=== PATIENT | male | born 1955 | race Caucasian/White ===

== ENCOUNTER 2020-09-25 07:19 | Inpatient (IN) ==
[~2020-09-25 07:19] MED LIST: Buffered Lidocaine 1% SYRIN 1 ml INTRADERM ONE; Dexamethasone IV 4 MG/ML VIAL 1 ml VIAL IV SLOW PU ONE; Dexmedetomidine 200 mcg/2 ml 2 ml VIAL (200 mcg) ONE; Famotidine IV 10 MG/ML 2 ml VIAL (20 mg) IV ONE; Lactated Ringers 1000 ml BAG 1,000 ML IV SCH
[2020-09-25] MEDS ORDERED: Dexamethasone IV 4 MG/ML VIAL 1 ml VIAL ONE (07:48)
[2020-09-25] MEDS ORDERED: Famotidine IV 10 MG/ML 2 ml VIAL (20 mg) ONE (07:49)
[2020-09-25] MEDS ORDERED: ceFAZolin 2 GM PREMIX 2 GM/50 ML BAG ONE (07:49)
[2020-09-25] MEDS ORDERED: ceFAZolin 1 GM ADVAN 1 GM ADDV.VIAL IVPB ONE (07:49)
[2020-09-25] MEDS ORDERED: Midazolam 2 mg/2 ml VIAL 1 mg/ml 2 ml VIAL (2 mg) ONE ×2 (08:39→10:12)
[2020-09-25] MEDS ORDERED: fentaNYL 100 mcg/2 ml 50 MCG/ML VIAL ONE (08:39)
[2020-09-25] MEDS ORDERED: Bupivacaine 0.5% SDV PF 30ML VIAL ONE (09:19)
[2020-09-25] MEDS ORDERED: HYDROcodone/ACETAMIN 5/325 mg TAB PO PRN (09:34)
[2020-09-25] MEDS ORDERED: DiMENhydriNATE IV 50 mg/ml 1 ml VIAL IV PUSH PRN (09:34)
[2020-09-25] MEDS ORDERED: Naloxone 0.4 mg VIAL 0.4 mg/ml 1 ml VIAL IV PRN (09:34)
[2020-09-25] MEDS ORDERED: fentaNYL 100 mcg/2 ml 50 MCG/ML VIAL IV PRN (09:34)
[2020-09-25] MEDS ORDERED: oxyCODONE/Acetamin 5/325 mg TAB PO PRN (09:34)
[2020-09-25] MEDS ORDERED: Propofol 10 MG/ML 20 ML BTL ONE ×3 (10:30→11:50)
[2020-09-25] MEDS ORDERED: Ondansetron 4 mg VIAL 2 MG/ML 2 ml VIAL ONE (10:30)
[2020-09-25] MEDS ORDERED: Ondansetron 4 mg VIAL 2 MG/ML 2 ml VIAL IV PRN (10:38)
[2020-09-25] MEDS ORDERED: Ondansetron ODT 4 mg TAB 4 MG TAB PO PRN (10:38)
[2020-09-25] MEDS ORDERED: Magnesium Hydroxide LIQ 30 ML UDC PO PRN (10:38)
[2020-09-25] MEDS ORDERED: diPHENhydraMINE IV 50 MG/ML 1 ml VIAL (BENADRYL) IV PRN (10:38)
[2020-09-25] MEDS ORDERED: diPHENhydraMINE 25 mg TAB PO PRN (10:38)
[2020-09-25] MEDS ORDERED: Morphine 2 MG/ML SYRINGE IV PRN (10:38)
[2020-09-25] MEDS ORDERED: Lactulose 30 ml UDC PO PRN (10:38)
[2020-09-25] MEDS ORDERED: Phenylephrine 40 mcg/mL 10mL (400mcg) SYRINGE ONE (11:10)
[2020-09-25 12:48] LABS: Hematocrit 41 % (42-52); Hemoglobin 13.8 g/dL (14.0-18.0)
[2020-09-25] MEDS ORDERED: oxyCODONE/Acetamin 5/325 mg TAB ONE (12:55)
[2020-09-25] MEDS: Lactated Ringers 1000 ml BAG 1,000 ML IV SCH (13:51)
[2020-09-25] MEDS: oxyCODONE/Acetamin 5/325 mg TAB PO PRN ×2 (16:16→20:24)
[2020-09-25] MEDS: ceFAZolin 1 GM ADVAN 1 GM in NS 0.9% 50 ML 50 ML IVPB SCH (18:01)
[2020-09-25] MEDS: Magnesium Hydroxide LIQ 30 ML UDC PO SCH (20:25)
[2020-09-26] MEDS: Lactated Ringers 1000 ml BAG 1,000 ML IV SCH (00:11)
[2020-09-26] MEDS: ceFAZolin 1 GM ADVAN 1 GM in NS 0.9% 50 ML 50 ML IVPB SCH ×2 (02:51→11:03)
[2020-09-26 04:56] LABS: Hematocrit 36 % (42-52); Hemoglobin 12.3 g/dL (14.0-18.0); Mean Platelet Volume 7.9 fL (7.4-10.4); Platelet Count 226 10^3/uL (150-450)
[2020-09-26 05:15] LABS: BUN/Creatinine Ratio 15.4 (8-20); Calcium 8.5 mg/dL (8.6-10.3); EGFR African American 101.8 (>60); EGFR Non-African American 84.1 (>60); Potassium 4.6 mmol/L (3.5-5.0)
[2020-09-26] MEDS: oxyCODONE/Acetamin 5/325 mg TAB PO PRN ×2 (05:25→09:55)
[2020-09-26] MEDS: Magnesium Hydroxide LIQ 30 ML UDC PO SCH (08:11)
[2020-09-26] MEDS ORDERED: Vitamin THERAPEUTIC TAB PO SCH (09:00)
[2020-09-26 11:30] VITALS: BP 127/68
== END 2020-09-26 12:55 | disposition home or self-care (01) | DRG 301 ==
LOC: SSU 07:19 → OR 07:19 → OBSVTOIN 13:25
PROVIDERS: ADMIT Orthopaedic Surgery Adult Reconstructive Orthopaedic Surgery; ATTEND Orthopaedic Surgery Adult Reconstructive Orthopaedic Surgery

== ENCOUNTER 2021-07-28 06:00 | Inpatient (IN) ==
[~2021-07-28 06:00] MED LIST changes: -Dexamethasone IV 4 MG/ML VIAL 1 ml VIAL IV SLOW PU ONE; -Dexmedetomidine 200 mcg/2 ml 2 ml VIAL (200 mcg) ONE; -Famotidine IV 10 MG/ML 2 ml VIAL (20 mg) IV ONE
[2021-07-28] MEDS ORDERED: ceFAZolin 2 GM in NS PREMIX 2 GM/100 ML BAG IVPB ONE (06:11)
[2021-07-28] MEDS ORDERED: Lidocaine 1% MPF 5 ML VIAL ONE (06:37)
[2021-07-28] MEDS ORDERED: Ondansetron 4 mg VIAL 2 MG/ML 2 ml VIAL ONE (06:53)
[2021-07-28] MEDS ORDERED: Lidocaine 2% PF 5 ML VIAL ONE (06:53)
[2021-07-28] MEDS ORDERED: Dexamethasone IV 4 MG/ML VIAL 1 ml VIAL ONE ×2 (06:53→07:08)
[2021-07-28 06:55] LABS: Hematocrit 48 % (42-52); Hemoglobin 16.2 g/dL (14.0-18.0); Mean Corpuscular HGB Conc 34 g/dL (31-36); Mean Corpuscular Hemoglobin 32 pg (27-31); Mean Corpuscular Volume 93 fL (80-94); Mean Platelet Volume 8.3 fL (7.4-10.4); Platelet Count 217 10^3/uL (150-450); Red Blood Count 5.16 10^6 /uL (4.18-5.48); Red Cell Distribution Width 13 % (10-15); White Blood Count 6.8 10^3/uL (3.5-10.8)
[2021-07-28] MEDS ORDERED: Propofol 10 mg/ml 100 ML BTL 200 ML ONE (06:56)
[2021-07-28] MEDS ORDERED: Acetaminophen IV 1 GM/100ML 100 ML IV ONE (06:57)
[2021-07-28] MEDS ORDERED: Desflurane 240 ML INH ONE (06:59)
[2021-07-28] MEDS ORDERED: Midazolam 2 mg/2 ml VIAL 1 mg/ml 2 ml VIAL (2 mg) ONE (07:07)
[2021-07-28] MEDS ORDERED: Bupivacaine 0.5% SDV PF 30ML VIAL ONE (07:07)
[2021-07-28] MEDS ORDERED: Ropivacaine 5 MG/ML 20 ML VIAL 0.5% (100 MG) ONE (07:13)
[2021-07-28 07:18] LABS: INR 1.01 (0.86-1.15)
[2021-07-28] MEDS ORDERED: fentaNYL 100 mcg/2 ml 50 MCG/ML VIAL ONE ×2 (08:37→11:32)
[2021-07-28] MEDS ORDERED: ceFAZolin VIAL VIAL ONE (08:44)
[2021-07-28] MEDS ORDERED: Metoprolol Tartrate 5 mg VIAL 5 ml VIAL (1 mg/ml) ONE (08:58)
[2021-07-28] MEDS ORDERED: Ondansetron 4 mg VIAL 2 MG/ML 2 ml VIAL IV PRN ×2 (09:13→10:04)
[2021-07-28] MEDS ORDERED: Magnesium Hydroxide LIQ 30 ML UDC PO PRN (09:13)
[2021-07-28] MEDS ORDERED: diPHENhydraMINE IV 50 MG/ML 1 ml VIAL (BENADRYL) IV PRN (09:13)
[2021-07-28] MEDS ORDERED: Morphine 2 MG/ML SYRINGE IV PRN (09:13)
[2021-07-28] MEDS ORDERED: Ondansetron ODT 4 mg TAB 4 MG TAB PO PRN (09:13)
[2021-07-28] MEDS ORDERED: diPHENhydraMINE 25 mg TAB PO PRN (09:13)
[2021-07-28] MEDS ORDERED: Lactulose 30 ml UDC PO PRN (09:13)
[2021-07-28] MEDS ORDERED: Esmolol 10 MG/ML 10 ML (100 mg) ONE (09:17)
[2021-07-28] MEDS ORDERED: Glycopyrrolate IV 0.2 MG/ML 1 ML VIAL ONE (09:17)
[2021-07-28] MEDS ORDERED: fentaNYL 100 mcg/2 ml 50 MCG/ML VIAL IV PRN (10:04)
[2021-07-28] MEDS ORDERED: Naloxone 0.4 mg VIAL 0.4 mg/ml 1 ml VIAL IV PRN (10:04)
[2021-07-28] MEDS ORDERED: Phenylephrine IV 10 MG/ML 1 ml VIAL ONE (13:42)
[2021-07-28] MEDS ORDERED: diPHENhydraMINE 25 mg TAB ONE (14:30)
[2021-07-28] MEDS: Lactated Ringers 1000 ml BAG 1,000 ML IV SCH ×2 (14:30→22:15)
[2021-07-28] MEDS ORDERED: oxyCODONE/Acetamin 5/325 mg TAB ONE (14:30)
[2021-07-28] MEDS: oxyCODONE/Acetamin 5/325 mg TAB PO PRN ×3 (14:33→22:26)
[2021-07-28] MEDS: ceFAZolin 1 GM ADVAN 1 GM in NS 0.9% 50 ML 50 ML IVPB SCH (16:28)
[2021-07-28] MEDS ORDERED: Metoprolol Tartrate 5 mg VIAL 5 ml VIAL (1 mg/ml) IV ONE (20:15)
[2021-07-28] MEDS: Magnesium Hydroxide LIQ 30 ML UDC PO SCH (20:23)
[2021-07-28] MEDS: Calcium Polycarbophil 625mg TB PO SCH (20:24)
[2021-07-28] MEDS ORDERED: NON FORMULARY MED (Potassium 99 mg Tablet) PO SCH (21:00)
[2021-07-28] MEDS ORDERED: Lactated Ringers 1000 ml BAG 1,000 ML IV ONE (21:16)
[2021-07-29] MEDS ORDERED: Metoprolol Tartrate 5 mg VIAL 5 ml VIAL (1 mg/ml) IV ONE ×2 (00:09→22:54)
[2021-07-29] MEDS: ceFAZolin 1 GM ADVAN 1 GM in NS 0.9% 50 ML 50 ML IVPB SCH ×2 (00:29→07:53)
[2021-07-29] MEDS ORDERED: Diltiazem IV push/loading dose 5 MG/ML 5 ML vial (25 mg) IV SLOW PU ONE ×2 (00:36→05:25)
[2021-07-29 02:07] LABS: Potassium 4.6 mmol/L (3.5-5.0); eGFR CKD-EPI 85.1 (>60)
[2021-07-29 02:54] LABS: Magnesium 1.9 mg/dL (1.9-2.7)
[2021-07-29 05:59] LABS: Hematocrit 42 % (42-52); Hemoglobin 14.3 g/dL (14.0-18.0); Mean Platelet Volume 8.5 fL (7.4-10.4); Platelet Count 230 10^3/uL (150-450)
[2021-07-29 06:24] LABS: Calcium 9.1 mg/dL (8.6-10.3); Magnesium 1.9 mg/dL (1.9-2.7); Potassium 4.6 mmol/L (3.5-5.0); eGFR CKD-EPI 91.7 (>60)
[2021-07-29] MEDS: oxyCODONE/Acetamin 5/325 mg TAB PO PRN (07:52)
[2021-07-29] MEDS: Vitamin THERAPEUTIC TAB PO SCH (07:52)
[2021-07-29] MEDS: Magnesium Hydroxide LIQ 30 ML UDC PO SCH ×2 (07:53→21:40)
[2021-07-29] MEDS ORDERED: Flu vaccine *QUAD* 2021-22* 0.5 ML SYRINGE IM ONE (09:00)
[2021-07-29] MEDS: Calcium Polycarbophil 625mg TB PO SCH (21:39)
[2021-07-30 06:19] LABS: Hematocrit 38 % (42-52); Hemoglobin 12.7 g/dL (14.0-18.0); Mean Platelet Volume 8.8 fL (7.4-10.4); Platelet Count 189 10^3/uL (150-450)
[2021-07-30] MEDS: Vitamin THERAPEUTIC TAB PO SCH (07:53)
[2021-07-30] MEDS: Magnesium Hydroxide LIQ 30 ML UDC PO SCH (07:55)
[2021-07-30 13:08] VITALS: BP 110/69
== END 2021-07-30 13:50 | disposition home or self-care (01) | DRG 302 ==
LOC: AA 06:00 → SSU 14:12 → MEDTELE 07-29 02:37
PROVIDERS: ADMIT Orthopaedic Surgery Adult Reconstructive Orthopaedic Surgery; ATTEND Orthopaedic Surgery Adult Reconstructive Orthopaedic Surgery

== ENCOUNTER 2022-12-13 10:33 | Inpatient (IN) ==
[2022-12-13] MEDS ORDERED: Magnesium Hydroxide LIQ 30 ML UDC PO PRN (13:03)
[2022-12-13] MEDS ORDERED: Lactulose 30 ml UDC PO PRN (13:03)
[2022-12-13] MEDS ORDERED: Ondansetron ODT 4 mg TAB 4 MG TAB PO PRN (13:03)
[2022-12-13] MEDS ORDERED: Morphine 2 MG/ML SYRINGE IV PRN (13:12)
[2022-12-13] MEDS ORDERED: Ondansetron 4 mg VIAL 2 MG/ML 2 ml VIAL IV PRN (13:29)
[2022-12-13] MEDS ORDERED: Naloxone 0.4 mg VIAL 0.4 mg/ml 1 ml VIAL IV PRN (13:29)
[2022-12-13] MEDS ORDERED: oxyCODONE/Acetamin 5/325 mg TAB PO PRN (13:29)
[2022-12-13] MEDS ORDERED: fentaNYL 100 mcg/2 ml 50 MCG/ML VIAL IV PRN (13:29)
[2022-12-13] MEDS ORDERED: Vancomycin per Pharmacy 1 EA NOTE FOLLOW UP SCH (14:00)
[2022-12-13 14:32] LABS: ABS Basophils 0.1 10^3/uL (0.0-0.1); ABS Lymphocytes 1.1 10^3/uL (1.0-4.8); ABS Neutrophils 8.9 10^3/uL (1.5-7.6); ABS Nucleated RBC 0.01 10^3/ul; Eosinophil % 0.2 %; Hemoglobin 15.5 g/dL (13.2-16.3); Lymphocyte % 9.7 %; Mean Corpuscular Hemoglobin 31.7 pg (27-33); Mean Corpuscular Hgb Conc 33.8 g/dL (31-36); Mean Corpuscular Volume 93.9 fL (80-97); Mean Platelet Volume 7.4 fL (7.5-11.2); Nucleated Red Blood Cells % 0.1 /100 WBC (0.0-0.4); Platelet Count 485 10^3/uL (150-450); Red Cell Distribution Width 13.2 % (12-17); White Blood Count 11.1 10^3/uL (3.6-10.2)
[2022-12-13 14:35] LABS: INR 1.36 (0.88-1.18)
[2022-12-13 14:46] LABS: C Reactive Protein 164.07 mg/L (<8.01); Creatinine, Serum 1.03 mg/dL (0.67-1.17); Potassium 4.1 mmol/L (3.5-5.0); eGFR CKD-EPI 80.6 (>60)
[2022-12-13] MEDS: Cefepime 2 GM in Dextrose 2 GM/50 ML BAG IV SCH (14:47)
[2022-12-13] MEDS: Ondansetron 4 mg VIAL 2 MG/ML 2 ml VIAL IV PRN (14:47)
[2022-12-13] MEDS ORDERED: Vancomycin 2,000 MG in NS 0.9% 500 ml BAG 500 ML IVPB ONE (15:00)
[2022-12-13] MEDS ORDERED: NS 0.9% 500 ml BAG 500 ML IV ONE (15:03)
[2022-12-13 15:20] LABS: Magnesium 2.6 mg/dL (1.9-2.7)
[2022-12-13 15:35] LABS: TSH Ultra Thyroid Stim Horm 5.46 mcIU/mL (0.34-5.60)
[2022-12-13] MEDS: NS 0.9% 1000 ml BAG 1,000 ML IV SCH (16:44)
[2022-12-13 16:57] LABS: Erythrocyte Sed Rate 57 mm/Hr (0-19)
[2022-12-13] MEDS ORDERED: Enoxaparin 40 MG/0.4 ML SYR SUBCUT SCH (18:00)
[2022-12-13] MEDS: Metoprolol Tartrate 5 mg VIAL 5 ml VIAL (1 mg/ml) IV PRN ×3 (18:02→19:40)
[2022-12-13] MEDS ORDERED: Iohexol 350 (CONTRAST) 500 ML MDV IV ONE (18:08)
[2022-12-13 18:19] LABS: Phosphorus 3.8 mg/dL (2.5-5.0)
[2022-12-14] MEDS: Magnesium Hydroxide LIQ 30 ML UDC PO SCH ×3 (00:03→20:11)
[2022-12-14] MEDS: Acetaminophen IV 1 GM/100ML 1,000 MG/100 ML BAG IV PRN ×2 (01:17→21:31)
[2022-12-14] MEDS: Cefepime 2 GM in Dextrose 2 GM/50 ML BAG IV SCH ×2 (01:57→20:13)
[2022-12-14] MEDS: Metoprolol Tartrate 5 mg VIAL 5 ml VIAL (1 mg/ml) IV PRN ×5 (02:46→23:48)
[2022-12-14] MEDS: NS 0.9% 1000 ml BAG 1,000 ML IV SCH ×2 (02:47→20:12)
[2022-12-14] MEDS ORDERED: Famotidine IV 10 MG/ML 2 ml VIAL (20 mg) IV SLOW PU ONE (05:16)
[2022-12-14] MEDS ORDERED: Buffered Lidocaine 1% SYRIN 1 ml INTRADERM ONE (06:00)
[2022-12-14] MEDS ORDERED: Lactated Ringers 1000 ml BAG 1,000 ML IV SCH (06:00)
[2022-12-14 06:40] LABS: Hematocrit 45.4 % (38-53); Hemoglobin 15.4 g/dL (13.2-16.3); Mean Corpuscular Hemoglobin 31.9 pg (27-33); Mean Corpuscular Volume 93.9 fL (80-97); Mean Platelet Volume 7.6 fL (7.5-11.2); Platelet Count 537 10^3/uL (150-450); Red Blood Count 4.83 10^6/uL (4.06-5.63); Red Cell Distribution Width 13.1 % (12-17); White Blood Count 12.1 10^3/uL (3.6-10.2)
[2022-12-14] MEDS ORDERED: Midazolam 10 mg/10 ml VIAL 1 mg/ml 10 ml VIAL (10 mg) IV SLOW PU ONE (07:12)
[2022-12-14] MEDS ORDERED: fentaNYL 100 mcg/2 ml 50 MCG/ML VIAL IV SLOW PU ONE (07:12)
[2022-12-14] MEDS ORDERED: Flumazenil 0.5 mg/5 ml 0.1 MG/ML 5 ml VIAL IV PRN (07:12)
[2022-12-14] MEDS ORDERED: Ondansetron 4 mg VIAL 2 MG/ML 2 ml VIAL IV ONE (07:12)
[2022-12-14] MEDS ORDERED: Lidocaine 2% JELLY 6 ML Topical TOPICAL ONE (07:12)
[2022-12-14] MEDS ORDERED: Naloxone 0.4 mg VIAL 0.4 mg/ml 1 ml VIAL IV PUSH PRN (07:12)
[2022-12-14] MEDS ORDERED: Lactated Ringers 1000 ml BAG 1,000 ML IV ONE (07:12)
[2022-12-14 07:26] LABS: C Reactive Protein 136.16 mg/L (<8.01); Calcium 8.4 mg/dL (8.6-10.3); Creatinine, Serum 0.76 mg/dL (0.67-1.17); eGFR CKD-EPI 99.7 (>60)
[2022-12-14] MEDS ORDERED: Midazolam 10 mg/10 ml VIAL 1 mg/ml 10 ml VIAL (10 mg) ONE (07:32)
[2022-12-14] MEDS ORDERED: Ondansetron 4 mg VIAL 2 MG/ML 2 ml VIAL ONE (07:32)
[2022-12-14] MEDS ORDERED: fentaNYL 100 mcg/2 ml 50 MCG/ML VIAL ONE (07:32)
[2022-12-14] MEDS: Vitamin THERAPEUTIC TAB PO SCH (09:00)
[2022-12-14] MEDS: Vancomycin 1,500 MG in NS 0.9% 250 ml 250 ML IVPB SCH ×2 (09:09→21:39)
[2022-12-14] MEDS ORDERED: ceFAZolin *3* GM in NS PREMIX 3 GM/100 ML BAG IV ONE (12:35)
[2022-12-14] MEDS ORDERED: Tranexamic Acid 1,000 MG in NS 0.9% 50 ML IV ONE (13:00)
[2022-12-14] MEDS ORDERED: Vancomycin 1,000 MG VIAL ONE (13:09)
[2022-12-14] MEDS ORDERED: Midazolam 2 mg/2 ml VIAL 1 mg/ml 2 ml VIAL (2 mg) ONE ×2 (14:28→15:39)
[2022-12-14] MEDS ORDERED: Propofol 10 MG/ML 20 ML BTL ONE ×2 (15:31→15:35)
[2022-12-14] MEDS ORDERED: Metoprolol Tartrate 5 mg VIAL 5 ml VIAL (1 mg/ml) ONE ×2 (15:49→16:11)
[2022-12-14] MEDS ORDERED: Acetaminophen IV 1 GM/100ML 1,000 MG/100 ML BAG IV ONE (16:04)
[2022-12-14] MEDS ORDERED: Esmolol 10 MG/ML 10 ML (100 mg) IV ONE (16:46)
[2022-12-15] MEDS: Metoprolol Tartrate 5 mg VIAL 5 ml VIAL (1 mg/ml) IV PRN ×4 (01:50→12:54)
[2022-12-15] MEDS: Acetaminophen IV 1 GM/100ML 1,000 MG/100 ML BAG IV PRN ×3 (03:37→22:21)
[2022-12-15] MEDS ORDERED: Cefepime 2 GM in Dextrose 2 GM/50 ML BAG IV SCH (08:00)
[2022-12-15] MEDS ORDERED: Vancomycin Trough Check NOTE FOLLOW UP ONE (08:30)
[2022-12-15 08:34] LABS: ABS Basophils 0.1 10^3/uL (0.0-0.1); ABS Eosinophils 0.1 10^3/uL (0.0-0.5); ABS Lymphocytes 1.2 10^3/uL (1.0-4.8); ABS Monocytes 0.9 10^3/uL (0.0-1.1); ABS Neutrophils 8.7 10^3/uL (1.5-7.6); Eosinophil % 1.2 %; Hematocrit 43.5 % (38-53); Hemoglobin 14.5 g/dL (13.2-16.3); Lymphocyte % 10.8 %; Mean Corpuscular Hemoglobin 31.3 pg (27-33); Mean Corpuscular Hgb Conc 33.3 g/dL (31-36); Mean Corpuscular Volume 93.9 fL (80-97); Mean Platelet Volume 7.2 fL (7.5-11.2); Platelet Count 496 10^3/uL (150-450); Red Blood Count 4.63 10^6/uL (4.06-5.63)
[2022-12-15] MEDS: ceFAZolin 2 GM in NS PREMIX 2 GM/100 ML BAG IVPB SCH ×2 (09:10→16:58)
[2022-12-15 09:12] LABS: C Reactive Protein 109.07 mg/L (<8.01); Calcium 7.8 mg/dL (8.6-10.3); Creatinine, Serum 0.68 mg/dL (0.67-1.17); Magnesium 2.2 mg/dL (1.9-2.7); Potassium 4.1 mmol/L (3.5-5.0); eGFR CKD-EPI 103.2 (>60)
[2022-12-15] MEDS: Vitamin THERAPEUTIC TAB PO SCH (09:46)
[2022-12-15] MEDS: Magnesium Hydroxide LIQ 30 ML UDC PO SCH ×2 (09:46→20:13)
[2022-12-15 10:06] LABS: Erythrocyte Sed Rate 48 mm/Hr (0-19)
[2022-12-15] MEDS: NS 0.9% 1000 ml BAG 1,000 ML IV SCH (11:08)
[2022-12-15] MEDS: Metoprolol Tartrate 5 mg VIAL 5 ml VIAL (1 mg/ml) IV SCH ×2 (16:57→20:06)
[2022-12-16] MEDS: NS 0.9% 1000 ml BAG 1,000 ML IV SCH ×2 (00:03→13:08)
[2022-12-16] MEDS: Metoprolol Tartrate 5 mg VIAL 5 ml VIAL (1 mg/ml) IV SCH ×4 (00:03→11:06)
[2022-12-16] MEDS: ceFAZolin 2 GM in NS PREMIX 2 GM/100 ML BAG IVPB SCH ×3 (00:55→17:21)
[2022-12-16 06:32] LABS: ABS Eosinophils 0.1 10^3/uL (0.0-0.5); ABS Lymphocytes 1.1 10^3/uL (1.0-4.8); ABS Monocytes 0.7 10^3/uL (0.0-1.1); ABS Neutrophils 6.8 10^3/uL (1.5-7.6); Hematocrit 43.6 % (38-53); Hemoglobin 14.7 g/dL (13.2-16.3); Lymphocyte % 12.2 %; Mean Corpuscular Hemoglobin 31.2 pg (27-33); Mean Corpuscular Hgb Conc 33.7 g/dL (31-36); Mean Corpuscular Volume 92.5 fL (80-97); Mean Platelet Volume 7.4 fL (7.5-11.2); Platelet Count 556 10^3/uL (150-450); Red Blood Count 4.72 10^6/uL (4.06-5.63); Red Cell Distribution Width 13.1 % (12-17); White Blood Count 8.7 10^3/uL (3.6-10.2)
[2022-12-16 07:04] LABS: Albumin 2.9 g/dL (3.2-5.2); Albumin/Globulin Ratio 1.1 (1-3); Calcium 8.3 mg/dL (8.6-10.3); Creatinine, Serum 0.69 mg/dL (0.67-1.17); Globulin 2.7 g/dL (2-4); Magnesium 2.3 mg/dL (1.9-2.7); Potassium 4.3 mmol/L (3.5-5.0); Total Bilirubin 0.7 mg/dL (0.2-1.0); Total Protein 5.6 g/dL (6.4-8.9); eGFR CKD-EPI 102.7 (>60)
[2022-12-16] MEDS: Magnesium Hydroxide LIQ 30 ML UDC PO SCH ×3 (08:03→21:36)
[2022-12-16] MEDS: Vitamin THERAPEUTIC TAB PO SCH (09:56)
[2022-12-16] MEDS ORDERED: Digoxin IV 0.5 MG/2 ML AMP (0.25 MG/ML) IV SLOW PU ONE ×2 (14:17→21:01)
[2022-12-16] MEDS: Ondansetron 4 mg VIAL 2 MG/ML 2 ml VIAL IV PRN (23:38)
[2022-12-17] MEDS: ceFAZolin 2 GM in NS PREMIX 2 GM/100 ML BAG IVPB SCH ×2 (00:16→09:24)
[2022-12-17] MEDS ORDERED: Digoxin IV 0.5 MG/2 ML AMP (0.25 MG/ML) IV SLOW PU ONE (03:00)
[2022-12-17] MEDS: NS 0.9% 1000 ml BAG 1,000 ML IV SCH ×3 (03:12→16:32)
[2022-12-17 06:42] LABS: ABS Eosinophils 0.1 10^3/uL (0.0-0.5); ABS Lymphocytes 0.9 10^3/uL (1.0-4.8); ABS Monocytes 0.6 10^3/uL (0.0-1.1); ABS Neutrophils 6.8 10^3/uL (1.5-7.6); Eosinophil % 0.7 %; Hematocrit 44.4 % (38-53); Hemoglobin 15.2 g/dL (13.2-16.3); Lymphocyte % 10.2 %; Mean Corpuscular Hemoglobin 32.2 pg (27-33); Mean Corpuscular Hgb Conc 34.3 g/dL (31-36); Mean Corpuscular Volume 93.7 fL (80-97); Mean Platelet Volume 7.3 fL (7.5-11.2); Platelet Count 629 10^3/uL (150-450); Red Blood Count 4.73 10^6/uL (4.06-5.63); Red Cell Distribution Width 13.2 % (12-17); White Blood Count 8.3 10^3/uL (3.6-10.2)
[2022-12-17 07:13] LABS: Calcium 8.6 mg/dL (8.6-10.3); Creatinine, Serum 0.72 mg/dL (0.67-1.17); Magnesium 2.3 mg/dL (1.9-2.7); Potassium 4.4 mmol/L (3.5-5.0); eGFR CKD-EPI 101.4 (>60)
[2022-12-17] MEDS: Metoprolol Tartrate 5 mg VIAL 5 ml VIAL (1 mg/ml) IV SCH ×4 (09:12→21:07)
[2022-12-17] MEDS: Polyethylene Glycol 3350 17 GM PACKET PO SCH (09:19)
[2022-12-17] MEDS: Magnesium Hydroxide LIQ 30 ML UDC PO SCH ×2 (09:19→20:50)
[2022-12-17] MEDS: Vitamin THERAPEUTIC TAB PO SCH (09:19)
[2022-12-17] MEDS ORDERED: Digoxin IV 0.5 MG/2 ML AMP (0.25 MG/ML) IV SLOW PU SCH (17:00)
[2022-12-17] MEDS: ceFAZolin 2 GM PREMIX 2 GM/50 ML BAG IV SCH (18:00)
[2022-12-18] MEDS: ceFAZolin 2 GM PREMIX 2 GM/50 ML BAG IV SCH ×3 (01:09→17:00)
[2022-12-18] MEDS: Metoprolol Tartrate 5 mg VIAL 5 ml VIAL (1 mg/ml) IV SCH ×7 (01:12→21:00)
[2022-12-18] MEDS: NS 0.9% 1000 ml BAG 1,000 ML IV SCH ×2 (05:43→18:31)
[2022-12-18 06:18] LABS: ABS Eosinophils 0.2 10^3/uL (0.0-0.5); ABS Lymphocytes 1.5 10^3/uL (1.0-4.8); ABS Monocytes 0.8 10^3/uL (0.0-1.1); ABS Neutrophils 3.8 10^3/uL (1.5-7.6); Eosinophil % 2.4 %; Hematocrit 44.5 % (38-53); Hemoglobin 15.2 g/dL (13.2-16.3); Lymphocyte % 23.7 %; Mean Corpuscular Hemoglobin 32.1 pg (27-33); Mean Corpuscular Hgb Conc 34.1 g/dL (31-36); Mean Corpuscular Volume 94.2 fL (80-97); Mean Platelet Volume 7.7 fL (7.5-11.2); Platelet Count 705 10^3/uL (150-450); Red Blood Count 4.72 10^6/uL (4.06-5.63); Red Cell Distribution Width 13.5 % (12-17); White Blood Count 6.2 10^3/uL (3.6-10.2)
[2022-12-18 06:40] LABS: Calcium 8.6 mg/dL (8.6-10.3); Creatinine, Serum 0.75 mg/dL (0.67-1.17); Potassium 4.3 mmol/L (3.5-5.0); eGFR CKD-EPI 100.1 (>60)
[2022-12-18] MEDS: Magnesium Hydroxide LIQ 30 ML UDC PO SCH ×2 (13:13→21:08)
[2022-12-18] MEDS: Vitamin THERAPEUTIC TAB PO SCH (13:13)
[2022-12-18] MEDS: Polyethylene Glycol 3350 17 GM PACKET PO SCH (13:34)
[2022-12-18] MEDS: Digoxin IV 0.5 MG/2 ML AMP (0.25 MG/ML) IV SLOW PU SCH (18:31)
[2022-12-19] MEDS: Metoprolol Tartrate 5 mg VIAL 5 ml VIAL (1 mg/ml) IV SCH ×6 (00:56→21:24)
[2022-12-19] MEDS: ceFAZolin 2 GM PREMIX 2 GM/50 ML BAG IV SCH ×3 (01:00→16:50)
[2022-12-19] MEDS: NS 0.9% 1000 ml BAG 1,000 ML IV SCH (05:55)
[2022-12-19 06:56] LABS: ABS Eosinophils 0.2 10^3/uL (0.0-0.5); ABS Lymphocytes 1.3 10^3/uL (1.0-4.8); ABS Monocytes 0.6 10^3/uL (0.0-1.1); ABS Neutrophils 5.9 10^3/uL (1.5-7.6); Eosinophil % 2.1 %; Hematocrit 44.6 % (38-53); Lymphocyte % 15.7 %; Mean Corpuscular Hemoglobin 31.4 pg (27-33); Mean Corpuscular Hgb Conc 33.5 g/dL (31-36); Mean Corpuscular Volume 93.6 fL (80-97); Mean Platelet Volume 7.6 fL (7.5-11.2); Platelet Count 608 10^3/uL (150-450); Red Blood Count 4.77 10^6/uL (4.06-5.63); Red Cell Distribution Width 13.4 % (12-17)
[2022-12-19 07:44] LABS: Blood Urea Nitrogen 23 mg/dL (6-24); CO2 Carbon Dioxide 30 mmol/L (22-32); Calcium 8.2 mg/dL (8.6-10.3); Chloride 105 mmol/L (101-111); Creatinine, Serum 0.78 mg/dL (0.67-1.17); Glucose 99 mg/dL (70-100); Magnesium 2.4 mg/dL (1.9-2.7); Sodium 143 mmol/L (135-145)
[2022-12-19 07:50] LABS: Anion Gap 8 mmol/L (2-16)
[2022-12-19] MEDS: Vitamin THERAPEUTIC TAB PO SCH (08:10)
[2022-12-19] MEDS: Polyethylene Glycol 3350 17 GM PACKET PO SCH (08:44)
[2022-12-19] MEDS: Ondansetron 4 mg VIAL 2 MG/ML 2 ml VIAL IV PRN (16:29)
[2022-12-19] MEDS ORDERED: Metoclopramide 5 MG/ML VIAL (10 mg) IV PRN (16:47)
[2022-12-19] MEDS: Digoxin IV 0.5 MG/2 ML AMP (0.25 MG/ML) IV SLOW PU SCH (17:58)
[2022-12-19] MEDS: Acetaminophen IV 1 GM/100ML 1,000 MG/100 ML BAG IV PRN (19:18)
[2022-12-19] MEDS ORDERED: HYDROmorphone 1 MG/1 ML SYRINGE IV PRN (19:20)
[2022-12-20] MEDS: ceFAZolin 2 GM PREMIX 2 GM/50 ML BAG IV SCH ×3 (01:36→17:56)
[2022-12-20] MEDS: Metoprolol Tartrate 5 mg VIAL 5 ml VIAL (1 mg/ml) IV SCH ×6 (01:36→21:50)
[2022-12-20] MEDS: Polyethylene Glycol 3350 17 GM PACKET PO SCH (09:00)
[2022-12-20] MEDS: Vitamin THERAPEUTIC TAB PO SCH (09:00)
[2022-12-20] MEDS ORDERED: Iohexol 350 (CONTRAST) 500 ML MDV IV ONE (14:59)
[2022-12-20 16:42] LABS: Calcium 8.9 mg/dL (8.6-10.3); Creatinine, Serum 0.79 mg/dL (0.67-1.17); Magnesium 2.3 mg/dL (1.9-2.7); Phosphorus 3.4 mg/dL (2.5-5.0); Potassium 4.2 mmol/L (3.5-5.0); eGFR CKD-EPI 98.6 (>60)
[2022-12-20] MEDS: Digoxin IV 0.5 MG/2 ML AMP (0.25 MG/ML) IV SLOW PU SCH (17:50)
[2022-12-21] MEDS: Metoprolol Tartrate 5 mg VIAL 5 ml VIAL (1 mg/ml) IV SCH ×4 (01:24→13:26)
[2022-12-21] MEDS: ceFAZolin 2 GM PREMIX 2 GM/50 ML BAG IV SCH ×3 (01:24→16:56)
[2022-12-21] MEDS: Polyethylene Glycol 3350 17 GM PACKET PO SCH (07:14)
[2022-12-21] MEDS: Vitamin THERAPEUTIC TAB PO SCH (07:15)
[2022-12-21] MEDS ORDERED: Metoprolol Tartrate 5 mg VIAL 5 ml VIAL (1 mg/ml) IV PRN (14:29)
[2022-12-21] MEDS ORDERED: Warfarin per PHARMACY **NOTE FOLLOW UP SCH (15:00)
[2022-12-22] MEDS: ceFAZolin 2 GM PREMIX 2 GM/50 ML BAG IV SCH ×3 (00:38→16:48)
[2022-12-22 06:09] LABS: ABS Eosinophils 0.2 10^3/uL (0.0-0.5); ABS Lymphocytes 1.6 10^3/uL (1.0-4.8); ABS Monocytes 0.7 10^3/uL (0.0-1.1); ABS Neutrophils 7.3 10^3/uL (1.5-7.6); ABS Nucleated RBC 0.01 10^3/ul; Eosinophil % 1.7 %; Hemoglobin 14.8 g/dL (13.2-16.3); Lymphocyte % 16.6 %; Mean Corpuscular Hemoglobin 31.1 pg (27-33); Mean Corpuscular Hgb Conc 33.6 g/dL (31-36); Mean Corpuscular Volume 92.5 fL (80-97); Mean Platelet Volume 7.5 fL (7.5-11.2); Nucleated Red Blood Cells % 0.1 /100 WBC (0.0-0.4); Platelet Count 543 10^3/uL (150-450); Red Blood Count 4.76 10^6/uL (4.06-5.63); Red Cell Distribution Width 13.3 % (12-17); White Blood Count 9.8 10^3/uL (3.6-10.2)
[2022-12-22 06:49] LABS: Calcium 8.4 mg/dL (8.6-10.3); Creatinine, Serum 0.77 mg/dL (0.67-1.17); Digoxin 0.6 ng/ml (0.8-2.0); Potassium 3.8 mmol/L (3.5-5.0); eGFR CKD-EPI 99.4 (>60)
[2022-12-22] MEDS: Vitamin THERAPEUTIC TAB PO SCH (09:05)
[2022-12-22] MEDS: Polyethylene Glycol 3350 17 GM PACKET PO SCH (09:06)
[2022-12-22] MEDS: Acetaminophen IV 1 GM/100ML 1,000 MG/100 ML BAG IV PRN (23:47)
[2022-12-23] MEDS: ceFAZolin 2 GM PREMIX 2 GM/50 ML BAG IV SCH ×3 (01:30→16:31)
[2022-12-23 06:10] LABS: INR 3.6 (0.88-1.18)
[2022-12-23] MEDS: Polyethylene Glycol 3350 17 GM PACKET PO SCH (09:25)
[2022-12-23] MEDS: Vitamin THERAPEUTIC TAB PO SCH (09:26)
[2022-12-23] MEDS: Methylnaltrexone SQ (NF) 12 MG/0.6 ML VIAL SUBCUT SCH (12:28)
[2022-12-23 12:58] LABS: Albumin 3.1 g/dL (3.2-5.2); Calcium 8.3 mg/dL (8.6-10.3); Creatinine, Serum 0.83 mg/dL (0.67-1.17); Globulin 2.4 g/dL (2-4); Magnesium 1.9 mg/dL (1.9-2.7); Phosphorus 3.5 mg/dL (2.5-5.0); Potassium 4.1 mmol/L (3.5-5.0); Total Protein 5.5 g/dL (6.4-8.9); eGFR CKD-EPI 97.1 (>60)
[2022-12-23 12:59] LABS: Albumin/Globulin Ratio 1.3 (1-3); Total Bilirubin 0.5 mg/dL (0.2-1.0)
[2022-12-23] MEDS ORDERED: PPN (PERIPHERAL) 24 HR with D10W 1000 ml BAG 1,000 ML, Amino Acid Infusion 10% 850 ML, ... IV SCH (17:00)
[2022-12-24] MEDS: Warfarin DAILY REMINDER **NOTE FOLLOW UP SCH ×2 (00:33→17:25)
[2022-12-24] MEDS: ceFAZolin 2 GM PREMIX 2 GM/50 ML BAG IV SCH ×3 (02:15→17:20)
[2022-12-24 06:28] LABS: ABS Eosinophils 0.2 10^3/uL (0.0-0.5); ABS Lymphocytes 1.3 10^3/uL (1.0-4.8); ABS Neutrophils 9.8 10^3/uL (1.5-7.6); Eosinophil % 1.4 %; Hematocrit 41.4 % (38-53); Lymphocyte % 10.9 %; Mean Corpuscular Hemoglobin 31.6 pg (27-33); Mean Corpuscular Hgb Conc 33.9 g/dL (31-36); Mean Corpuscular Volume 93.1 fL (80-97); Mean Platelet Volume 7.8 fL (7.5-11.2); Platelet Count 383 10^3/uL (150-450); Red Blood Count 4.44 10^6/uL (4.06-5.63); Red Cell Distribution Width 13.3 % (12-17); White Blood Count 12.3 10^3/uL (3.6-10.2)
[2022-12-24 06:34] LABS: INR 1.87 (0.88-1.18)
[2022-12-24 07:01] LABS: Albumin 2.9 g/dL (3.2-5.2); Albumin/Globulin Ratio 1.3 (1-3); Calcium 8.3 mg/dL (8.6-10.3); Creatinine, Serum 0.65 mg/dL (0.67-1.17); Digoxin 0.7 ng/ml (0.8-2.0); Globulin 2.3 g/dL (2-4); Phosphorus 2.9 mg/dL (2.5-5.0); Potassium 3.8 mmol/L (3.5-5.0); Total Bilirubin 0.5 mg/dL (0.2-1.0); Total Protein 5.2 g/dL (6.4-8.9); eGFR CKD-EPI 104.6 (>60)
[2022-12-24] MEDS: Vitamin THERAPEUTIC TAB PO SCH (07:48)
[2022-12-24] MEDS: Polyethylene Glycol 3350 17 GM PACKET PO SCH (07:50)
[2022-12-24] MEDS: Methylnaltrexone SQ (NF) 12 MG/0.6 ML VIAL SUBCUT SCH (07:52)
[2022-12-24] MEDS: TPN 24 HR with Dextrose 50% Water 500 ML, Amino Acid Infusion 10% 1,000 ML, Lipid Emuls... CENT\\PICC SCH (17:16)
[2022-12-24] MEDS: Senna TAB 8.6 mg TAB PO SCH (21:40)
[2022-12-24] MEDS: Magnesium Hydroxide LIQ 30 ML UDC PO SCH (21:43)
[2022-12-25] MEDS: ceFAZolin 2 GM PREMIX 2 GM/50 ML BAG IV SCH ×3 (01:40→16:59)
[2022-12-25 06:22] LABS: ABS Eosinophils 0.2 10^3/uL (0.0-0.5); ABS Lymphocytes 1.3 10^3/uL (1.0-4.8); ABS Monocytes 0.9 10^3/uL (0.0-1.1); ABS Neutrophils 6.9 10^3/uL (1.5-7.6); Eosinophil % 1.8 %; Hematocrit 37.5 % (38-53); Hemoglobin 12.8 g/dL (13.2-16.3); Lymphocyte % 14.3 %; Mean Corpuscular Hemoglobin 31.7 pg (27-33); Mean Corpuscular Hgb Conc 34.1 g/dL (31-36); Mean Corpuscular Volume 92.8 fL (80-97); Mean Platelet Volume 8.2 fL (7.5-11.2); Platelet Count 299 10^3/uL (150-450); Red Blood Count 4.04 10^6/uL (4.06-5.63); Red Cell Distribution Width 13.6 % (12-17); White Blood Count 9.4 10^3/uL (3.6-10.2)
[2022-12-25 06:27] LABS: INR 1.41 (0.88-1.18)
[2022-12-25] MEDS: Polyethylene Glycol 3350 17 GM PACKET PO SCH (09:28)
[2022-12-25] MEDS: Methylnaltrexone SQ (NF) 12 MG/0.6 ML VIAL SUBCUT SCH (09:33)
[2022-12-25] MEDS: Magnesium Hydroxide LIQ 30 ML UDC PO SCH (09:34)
[2022-12-25] MEDS: Vitamin THERAPEUTIC TAB PO SCH (09:34)
[2022-12-25] MEDS: TPN 24 HR with Dextrose 50% Water 500 ML, Amino Acid Infusion 10% 1,000 ML, Lipid Emuls... CENT\\PICC SCH (16:59)
[2022-12-25] MEDS: Warfarin DAILY REMINDER **NOTE FOLLOW UP SCH (17:36)
[2022-12-25] MEDS: Senna TAB 8.6 mg TAB PO SCH (21:14)
[2022-12-26] MEDS: ceFAZolin 2 GM PREMIX 2 GM/50 ML BAG IV SCH ×3 (01:06→16:43)
[2022-12-26 06:40] LABS: INR 1.3 (0.88-1.18)
[2022-12-26 07:38] LABS: Creatinine, Serum 0.55 mg/dL (0.67-1.17); Potassium 4.1 mmol/L (3.5-5.0)
[2022-12-26] MEDS: Vitamin THERAPEUTIC TAB PO SCH (09:05)
[2022-12-26] MEDS: Polyethylene Glycol 3350 17 GM PACKET PO SCH ×2 (09:06→16:42)
[2022-12-26] MEDS: Warfarin DAILY REMINDER **NOTE FOLLOW UP SCH (17:22)
[2022-12-26] MEDS: Senna TAB 8.6 mg TAB PO SCH (21:46)
[2022-12-27] MEDS: ceFAZolin 2 GM PREMIX 2 GM/50 ML BAG IV SCH ×3 (00:32→17:17)
[2022-12-27 06:20] LABS: INR 1.26 (0.88-1.18)
[2022-12-27 06:31] LABS: Calcium 8.1 mg/dL (8.6-10.3); Potassium 4.3 mmol/L (3.5-5.0)
[2022-12-27 06:37] LABS: Creatinine, Serum 0.65 mg/dL (0.67-1.17); eGFR CKD-EPI 104.6 (>60)
[2022-12-27] MEDS: Polyethylene Glycol 3350 17 GM PACKET PO SCH (09:40)
[2022-12-27] MEDS: Vitamin THERAPEUTIC TAB PO SCH (09:41)
[2022-12-27] MEDS: Warfarin DAILY REMINDER **NOTE FOLLOW UP SCH (18:00)
[2022-12-27] MEDS: Senna TAB 8.6 mg TAB PO SCH (21:12)
[2022-12-28] MEDS: ceFAZolin 2 GM PREMIX 2 GM/50 ML BAG IV SCH ×2 (01:34→10:27)
[2022-12-28 06:44] LABS: INR 1.28 (0.88-1.18)
[2022-12-28] MEDS: Polyethylene Glycol 3350 17 GM PACKET PO SCH (07:51)
[2022-12-28] MEDS: Vitamin THERAPEUTIC TAB PO SCH (07:51)
[2022-12-28 09:54] VITALS: BP 112/72
== END 2022-12-28 12:45 | disposition home or self-care (01) | DRG 302 ==
LOC: MED → OBSVTOIN 12:36 → SUATTDRO 13:04
PROVIDERS: ADMIT Orthopaedic Surgery Adult Reconstructive Orthopaedic Surgery; ATTEND Internal Medicine